=== PATIENT | male | born 1970 | race Caucasian/White ===

== ENCOUNTER → 2020-06-04 | Outpatient (CLI) | payer OTHER ==
--- NOTE | 2020-06-04 13:47 | RAD ---
MR#: [id number] Date of Study: 06/04/2020 Ordering Physician: JACOB ZABALA, Referring Physician: SHAWNA DE Tech: APPROVED REPORT Test Type: Patient dosed and no images obtained Nurse/Tech Notes Pt was dosed for resting scan and refused further testing. He wanted IV to be removed due to discomfo rt. Rest: Stress: Viability: Radiopharm.Tc99m Sestamibi [id number] Img Date 06/04/2020 Rest Admin Site:IV - Left AntecubitalAdministrator:SONIA Mcdonald Conclusion 1. Patient received radioisotope for resting images but patient wanted his IV out and wanted to leave AMA before scintigraphic images were obtained. 2. Inconclusive and incomplete nuclear stress test. Signed by : Norberto Do, Electronically Approved : 06/04/2020 13:47:07
== END ==
LOC: NM 15:02
PROVIDERS: ATTEND Internal Medicine Cardiovascular Disease
DX: R07.9 Chest pain, unspecified (principal); Z53.29 Procedure and treatment not carried out because of patient's decision for other reasons
CPT/HCPCS: A9500